=== PATIENT | male | born 1965 | race Caucasian/White ===

== ENCOUNTER → 2020-07-07 12:35 | Outpatient (BNVA) | payer OTHER, SELFPAY | PROVIDERS: PCP Family Medicine; Visit Provider Orthopaedic Surgery | DX: Z13.89 Encounter for screening for other disorder (principal) | CPT/HCPCS: 99212 ==

== ENCOUNTER 2021-04-13 14:20 | Outpatient (REF) | payer OTHER, SELFPAY ==
--- NOTE | ~2021-04-13 | XR_ITS ---
EXAMINATION: XR FOOT, RIGHT CLINICAL INFORMATION: Pain COMPARISON: None TECHNIQUE: AP, lateral, and oblique views of the right foot. FINDINGS: Bone alignment is normal. No fracture or dislocation is seen. There is a small osteophyte off the lateral first metatarsal head. Joint spaces are otherwise normal. There are small calcaneal spurs. Soft tissues are otherwise normal. XR/XR foot RT min 3V IMPRESSION: Mild arthritis at the first MTP joint with small lateral first metatarsal head osteophyte.
== END 2021-04-13 14:21 | disposition home or self-care (01) ==
LOC: HO.HOSX 14:20
PROVIDERS: PCP Family Medicine; Visit Provider Orthopaedic Surgery
DX: M79.671 Pain in right foot (principal)
CPT/HCPCS: 73630; 99212

== ENCOUNTER → 2022-10-25 08:27 | Outpatient (BNVA) | payer OTHER, SELFPAY | PROVIDERS: PCP Family Medicine; Visit Provider Orthopaedic Surgery | DX: M62.89 Other specified disorders of muscle (principal); M54.16 Radiculopathy, lumbar region | CPT/HCPCS: 99212 ==

== ENCOUNTER 2024-04-06 10:43 | Outpatient (AMB) | payer OTHER, SELFPAY ==
--- NOTE | 2024-04-06 10:44 | MHC.OFFVIS ---
Intake Visit Reasons: NewProb-right shoulder joint pain Intake Note: Myron is a 58 year old ambidextrous male who presents today for a new problem visit with complaints of right shoulder pain . Patient reports that he has had pain in the right shoulder for about 3 months now. Denies injury, but complains a lump at top of the shoulder. He has mild occasional numbness at the elbow that radiates. He has increased pain while driving due to shifting and after working out. Allergies Fish Containing Products Allergy (Mild, Verified 04/06/24 10:47) Anaphylaxis HPI HPI NewProb-right shoulder joint pain: Details: Myron is a 58 year old ambidextrous male who presents today for a new problem visit with complaints of occasional right shoulder pain . Patient reports that he has had pain in the right shoulder for about 3 months now. Denies injury, but complains a lump at top of the shoulder. He has mild occasional numbness at the elbow that radiates. He has increased pain while driving due to shifting and after working out. He lifts weights regularly. He does not lift heavy weight but does do some overhead weight. [facility] Medical History Anxiety Hypothyroidism Prepatellar bursitis, left knee Seasonal allergies Family History Mother No problems noted. Father No problems noted. Social History Alcohol intake: current Current occupational status: employed Current occupation: psycho therapy Physical Exam Extrem Other: There is a prominent AC joint of the right with mild tenderness to palpation and minimal pain with cross-body adduction. Assessment & Plan Assessment & Plan (1) AC joint arthropathy: Code(s): M19.019 - Primary osteoarthritis, unspecified shoulder Category: Medical Plan: This is a healthy 58-year-old gentleman with AC joint arthropathy. Minimal pain and he lives his weight overhead without problem. I discussed the anatomy with him and some of my recommendations regarding safe shoulder exercises but if he enjoys doing it and is not painful I do not think it is going to dramatically worsen his condition which is mild. Coding Level of Care Code Est Pt Level 3 (22324) Diagnoses AC joint arthropathy M19.019
== END 2024-04-06 11:16 | disposition home or self-care (01) ==
LOC: HO.HOS 10:43
PROVIDERS: PCP Family Medicine; Visit Provider Orthopaedic Surgery
DX: M19.019 Primary osteoarthritis, unspecified shoulder (principal)
CPT/HCPCS: 99213

== ENCOUNTER → 2024-04-06 10:43 | Outpatient (BNVA) | payer OTHER, SELFPAY | PROVIDERS: PCP Family Medicine; Visit Provider Orthopaedic Surgery | DX: M19.011 Primary osteoarthritis, right shoulder (principal) | CPT/HCPCS: 99212 ==